=== PATIENT | female | born 1985 | race American Indian/Alaskan Native ===

== ENCOUNTER 2017-02-07 12:15 | Emergency (ER) | payer MEDICAID ==
[2017-02-07 12:35] VITALS: BP 100/63; PULSE 77; RESP 17; TEMP 97.2; O2SAT 100
--- NOTE | 2017-02-07 13:20 | ED PDOC ---
HPI: General Adult Time Seen by Provider: 02/07/17 12:38 Chief Complaint (Nursing): Dental Pain History Per: Patient Additional Complaint(s): Pt. states she has a long hx of b/l TMJ with "chronic osteomyelitis" which is [place] under [place] [facility] [place] Pt. states she regularly gets prescribed Percocet but depleted her supply [address] Merino is unavailable today. Denies trauma, fever, numbness, tingling, sore throat. Past Medical History Vital Signs: Last Vital Signs Temp 97.2 F L 02/07/17 12:31 Pulse 77 02/07/17 12:31 Resp 17 02/07/17 12:31 BP 100/63 02/07/17 12:31 Pulse Ox 100 02/07/17 12:31 - Medical History PMH: Asthma, Back Problems, Bronchitis - Family History Family History: States: No Known Family Hx - Home Medications Home Medications: Ambulatory Orders Medication Instructions Recorded Naproxen [Naprosyn] 500 mg PO BID PRN #30 tab 02/07/17 - Allergies Allergies/Adverse Reactions: Allergies Allergy/AdvReac Type Severity Reaction Status Date / Time penicillinase Allergy ANAPHYLAXIS Verified 02/07/17 12:31 Review of Systems ROS Statement: Except As Marked, All Systems Reviewed And Found Negative Physical Exam - Physical Exam Appears: Positive for: Well, Non-toxic, No Acute Distress Head Exam: Positive for: ATRAUMATIC, NORMAL INSPECTION, NORMOCEPHALIC Skin: Positive for: Normal Color, Warm. Negative for: Rash Eye Exam: Positive for: Normal appearance ENT: Positive for: TM Is/Are (non-erythematous, non-bulging bl), Other (minimal tenderness without swelling of both TMJ's; no malocclusion). Negative for: Pharyngeal Erythema, Tonsillar Exudate, Tonsillar Swelling Neurologic/Psych: Positive for: Alert, Oriented - Laboratory Results Urine POC: Negative - ECG O2 Sat by Pulse Oximetry: 100 - Progress ED Course And Treament: Toradol 15mg IM given. Disposition - Clinical Impression Clinical Impression: TMJ arthralgia - Patient ED Disposition Is Patient to be Admitted: No - Disposition Disposition: Routine/Home Disposition Time: 12:55 Condition: STABLE Additional Instructions: FOLLOW UP WITH DR. MERINO TOMORROW WITHOUT FAIL. Prescriptions: Naproxen [Naprosyn] 500 mg PO BID PRN #30 tab PRN Reason: Pain Instructions: Temporomandibular Disorder (ED)
== END 2017-02-07 13:35 | disposition home or self-care (01) ==
LOC: H.ER 12:15
DX: M26.609 Unspecified temporomandibular joint disorder, unspecified side (principal); M86.60 Other chronic osteomyelitis, unspecified site

== ENCOUNTER 2017-06-05 01:38 | Emergency (ER) | payer MEDICAID ==
[2017-06-05 01:54] VITALS: BMI 21.4
[2017-06-05 01:57] VITALS: BP 105/58; RESP 16; TEMP 98.6; O2SAT 100
--- NOTE | 2017-06-05 02:18 | ED PDOC ---
HPI: General Adult Time Seen by Provider: 06/05/17 01:52 Chief Complaint (Nursing): ENT Problem History Per: Patient Additional Complaint(s): Pt. states for the past 2 days she's had R sided jaw pain which radiates into her R ear. States she has "chronic osteomyelitis" to the lower jaw. She takes Clindamycin daily and is under the care of Dr. Merino, [facility] [place]. Pt. states she has been unable to take her Percoce as she has pain when she opens her jaw. Also states that the pain in her jaw causes her to have chest pain. Denies trauma, fever, numbness, tingling, SOB. Past Medical History Reviewed: Historical Data, Nursing Documentation, Vital Signs Vital Signs: Last Vital Signs Temp 98.6 F 06/05/17 01:54 Pulse 86 06/05/17 01:54 Resp 16 06/05/17 01:54 BP 105/58 L 06/05/17 01:54 Pulse Ox 100 06/05/17 04:36 - Medical History PMH: Asthma, Back Problems, Bronchitis Other PMH: mandibular osteomyelitis - Family History Family History: States: No Known Family Hx - Home Medications Home Medications: Ambulatory Orders Medication Instructions Recorded Naproxen [Naprosyn] 500 mg PO BID PRN #30 tab 02/07/17 Cyclobenzaprine [Cyclobenzaprine 10 mg PO Q8 PRN #14 tab 06/05/17 HCl] Naproxen [Naprosyn] 500 mg PO BID PRN #14 tab 06/05/17 - Allergies Allergies/Adverse Reactions: Allergies Allergy/AdvReac Type Severity Reaction Status Date / Time penicillinase Allergy ANAPHYLAXIS Verified 06/05/17 01:54 Review of Systems ROS Statement: Except As Marked, All Systems Reviewed And Found Negative Physical Exam - Physical Exam Appears: Positive for: Well, Non-toxic, No Acute Distress Skin: Positive for: Normal Color, Warm. Negative for: Rash Eye Exam: Positive for: EOMI, Normal appearance, PERRL ENT: Positive for: Other (R lateral mandibular jaw with mild tenderness and warmth but no erythema, swelling, or break in skin integrity; no malocclusion; no trismus) Neck: Positive for: Normal, Painless ROM Cardiovascular/Chest: Positive for: Regular Rate, Rhythm Respiratory: Positive for: CNT, Normal Breath Sounds Gastrointestinal/Abdominal: Positive for: Normal Exam, Soft. Negative for: Tenderness Neurologic/Psych: Positive for: Alert, Oriented - Laboratory Results Result Diagrams: 06/05/17 02:13 06/05/17 02:13 - ECG ECG: Positive for: Interpreted By Me ECG Rhythm: Positive for: Sinus Rhythm. Negative for: ST/T Changes Rate: 76 O2 Sat by Pulse Oximetry: 100 - Progress ED Course And Treament: Labs ordered. Toradol 30mg IV, valium 5mg PO ordered. Re-evaluation Time: 04:10 (Pt. found sleeping but is easily arousable. Reports pain has improved. ) Condition: Re-examined Disposition - Clinical Impression Clinical Impression: TMJ arthralgia - Patient ED Disposition Is Patient to be Admitted: No - Disposition Referrals: [facility] [Outside] Disposition: Routine/Home Disposition Time: 04:15 Condition: IMPROVED Prescriptions: Cyclobenzaprine [Cyclobenzaprine HCl] 10 mg PO Q8 PRN #14 tab PRN Reason: Muscle Spasm Naproxen [Naprosyn] 500 mg PO BID PRN #14 tab PRN Reason: Pain Instructions: Temporomandibular Disorder (ED) Forms: Smove (Tajik) Print Language: MALTESE
[2017-06-05 04:07] LABS: BASO % 0.4 % (0.0-2.0); EOS # 0.1 K/uL (0.0-0.7); EOS % 0.8 % (0.0-4.0); HEMATOCRIT 32.7 % (34.0-47.0); LYMPH # 3.5 K/uL (1.0-4.3); LYMPH % 30.4 % (20.0-40.0); MEAN CELL VOLUME 82.1 fl (81.0-99.0); MEAN CORPUSCULAR HEMOGLOBIN 26.6 pg (27.0-31.0); MEAN CORPUSCULAR HGB CONC 32.4 g/dL (33.0-37.0); MEAN PLATELET VOLUME 8.6 fl (7.2-11.7); MONO # 0.9 K/uL (0.0-0.8); MONO % 8.2 % (0.0-10.0); NEUT # 6.9 K/uL (1.8-7.0); NEUT % 60.2 % (50.0-75.0); RED CELL DISTRIBUTION WIDTH 14.2 % (11.5-14.5); WHITE BLOOD COUNT 11.4 K/uL (4.8-10.8)
[2017-06-05 04:20] LABS: ALB/GLOB RATIO 1.3 (1.0-2.1); ALKALINE PHOSPHATASE 86 U/L (38-126); ALT/SGPT 28 U/L (9-52); AST/SGOT 18 U/L (14-36); BILIRUBIN,TOTAL 0.3 mg/dl (0.2-1.3); BLOOD UREA NITROGEN 9 mg/dl (7-17); CALCIUM 9.5 mg/dL (8.4-10.2); CARBON DIOXIDE 26 mmol/L (22-30); CHLORIDE 104 mmol/L (98-107); GFR AFRICAN-AMERICAN > 60; GLUCOSE,RANDOM 106 mg/dL (65-105); POTASSIUM 4.1 MMOL/L (3.6-5.0); SODIUM 143 mmol/l (132-148); TOTAL PROTEIN 7.7 G/DL (6.3-8.2)
[2017-06-05 04:39] VITALS: PULSE 76
--- NOTE | 2017-06-06 12:25 | CARD ---
APPROVED REPORT EKG Measurement Heart [id number] <Conclusion> Normal sinus rhythm Normal ECG
== END 2017-06-05 04:50 | disposition home or self-care (01) ==
LOC: H.ER 01:38
DX: M26.621 Arthralgia of right temporomandibular joint (principal)
CPT/HCPCS: 80053; 85025; 93005; 96374; 99281; J1885